=== PATIENT | female | born 1965 | race Hispanic/Latino ===

== ENCOUNTER 2016-12-25 12:03 | Emergency (ER) | payer OTHER ==
[2016-12-25 12:21] VITALS: RESP 18; TEMP 99.2
[2016-12-25] MEDS ORDERED: HYDROmorphone 1 mg/ml ISec SC STA (12:35)
--- NOTE | 2016-12-25 12:39 | ED PDOC ---
Arrival/HPI - General Chief Complaint: Headache Time Seen by Provider: 12/25/16 12:08 Historian: Patient - History of Present Illness Time/Duration: Other (Several days) Symptom Onset: Gradual Symptom Course: Worsening Quality: Aching, Throbbing Severity Level: Severe Activities at Onset: Rest Associated Symptoms (Text): 12/25/16 12:36 Patient complains of a severe left sided migraine headache which is typical for her. She reports she had a left lower posterior root canal done yesterday and the headache has become worse. Her Percocet is not helping. She is requesting Dilaudid and Zofran. No dizziness or lightheadedness. No trauma. No fever. No nausea or vomiting. No photophobia. No weakness. No numbness tingling or paresthesias. She does not appear ill. Past Medical History - Provider Review Nursing Documentation Reviewed: Yes - Cardiac Hx Hypertension: Yes - Pulmonary Hx Respiratory Disorders: No - Neurological Hx Seizures: Yes (10 yrs ago) - HEENT Hx HEENT Disorder: No - Renal Hx Renal Disorder: No - Endocrine/Metabolic Hx Endocrine Disorders: No - Hematological/Oncological Hx Blood Disorders: No - Gastrointestinal Hx Diverticulitis: Yes Hx Gastroesophageal Reflux: Yes - Psychiatric Hx Anxiety: Yes Hx Depression: Yes Hx Substance Use: No - Surgical History Hx Hysterectomy: Yes Family/Social History - Physician Review Nursing Documentation Reviewed: Yes Family/Social History: Unknown Family HX Smoking Status: Never Smoked Hx Alcohol Use: No Hx Substance Use: No Allergies/Home Meds Allergies/Adverse Reactions: Allergies Iodine and Iodide Containing Produc Allergy (Severe, Verified 12/25/16 12:18) SHORTNESS OF BREATH ketorolac [From Toradol] Allergy (Severe, Verified 12/25/16 12:18) VOMITING Penicillins Allergy (Severe, Verified 12/25/16 12:18) SHORTNESS OF BREATH adhesive Allergy (Verified 12/25/16 12:20) RASH metoclopramide [From Reglan] Allergy (Verified 12/25/16 12:18) FATIGUE moxifloxacin [From Avelox] Allergy (Verified 12/25/16 12:21) seziure prochlorperazine [From Compazine] Allergy (Verified 12/25/16 12:18) VOMITING promethazine [From Phenergan] Allergy (Verified 12/25/16 12:19) VOMITING triamcinolone [From Kenalog] Allergy (Verified 12/25/16 12:19) RASH Review of Systems - Physician Review All systems were reviewed & negative as marked: Yes - Review of Systems Constitutional: Normal Eyes: Normal ENT: Other (Left earache) Respiratory: Normal Cardiovascular: Normal Gastrointestinal: Normal. absent: Nausea, Vomiting Neurological: Headache. absent: Dizziness, Focal Weakness, Gait Changes, Speech Changes, Facial Droop, Disequilibrium, Seizure Physical Exam Vital Signs Reviewed: Yes Vital Signs Temp Pulse Resp BP Pulse Ox 12/25/16 13:12 99 H 18 127/79 97 12/25/16 12:04 99.2 F 118 H 18 129/84 98 Temperature: Afebrile Blood Pressure: Normal Pulse: Tachycardic Respiratory Rate: Normal Appearance: Positive for: Well-Appearing, Non-Toxic, Comfortable Pain Distress: None Mental Status: Positive for: Alert and Oriented X 3 - Systems Exam Head: Present: Atraumatic, Normocephalic Pupils: Present: PERRL Extroacular Muscles: Present: EOMI Conjunctiva: Present: Normal Ears: Present: NORMAL TM, Normal Canal. No: Erythema, TM Bulging Mouth: Present: Moist Mucous Membranes Pharnyx: Present: Other (Left mid jaw swelling secondary to root canal yesterday ). No: ERYTHEMA, EXUDATE, TONSILS ENLARGED Neck: Present: Normal Range of Motion. No: Meningeal Signs, MIDLINE TENDERNESS , Paraspinal Tenderness Respiratory/Chest: Present: Clear to Auscultation, Good Air Exchange. No: Respiratory Distress, Accessory Muscle Use Cardiovascular: Present: Regular Rate and Rhythm, Normal S1, S2. No: Murmurs Abdomen: Present: Normal Bowel Sounds. No: Tenderness, Distention, Peritoneal Signs Upper Extremity: Present: Normal Inspection. No: Cyanosis, Edema Lower Extremity: Present: Normal Inspection. No: Edema Neurological: Present: GCS=15, CN II-XII Intact, Speech Normal, Motor Func Grossly Intact, Normal Sensory Function, Normal Cerebellar Funct, Gait Normal Skin: Present: Warm, Dry, Normal Color. No: Rashes Psychiatric: Present: Alert, Oriented x 3, Normal Insight, Normal Concentration Medical Decision Making ED Course and Treatment: 12/25/16 13:51 Patient is requesting additional Zofran and Dilaudid. 12/25/16 14:58 Improved after second dose of Dilaudid and Zofran. She is requesting Percocet and Zofran to go home with. I discussed with her that I would give her a prescription for Zofran, but she needed her chronic narcotic pain medicine from her PMD. She will be discharged home accompanied by her . - Medication Orders Current Medication Orders: Discontinued Medications Hydromorphone HCl (Dilaudid) 1 mg SC STAT STA Stop: 12/25/16 12:36 Last Admin: 12/25/16 12:52 Dose: Hydromorphone HCl (Dilaudid) 1 mg IVP STAT STA Stop: 12/25/16 12:54 Last Admin: 12/25/16 12:54 Dose: 1 mg Hydromorphone HCl (Dilaudid) 1 mg IVP STAT STA Stop: 12/25/16 13:49 Last Admin: 12/25/16 14:14 Dose: 1 mg Sodium Chloride (Sodium Chloride 0.9%) 500 mls @ 500 mls/hr IV ONCE ONE Stop: 12/25/16 14:48 Last Admin: 12/25/16 14:14 Dose: 500 mls/hr Ondansetron HCl (Zofran Tab) 4 mg PO STAT STA Stop: 12/25/16 12:36 Last Admin: 12/25/16 12:52 Dose: Ondansetron HCl (Zofran Inj) Confirm Administered Dose 4 mg .ROUTE .STK-MED ONE Stop: 12/25/16 12:51 Last Admin: 12/25/16 12:55 Dose: 4 mg Ondansetron HCl (Zofran Inj) 4 mg IVP STAT STA Stop: 12/25/16 12:55 Last Admin: 12/25/16 12:55 Dose: Ondansetron HCl (Zofran Inj) 4 mg IVP ONCE ONE Stop: 12/25/16 13:50 Last Admin: 12/25/16 14:15 Dose: 4 mg Disposition/Present on Arrival - Present on Arrival Any Indicators Present on Arrival: No History of DVT/PE: No History of Uncontrolled Diabetes: No Urinary Catheter: No History of Decub. Ulcer: No History Surgical Site Infection Following: None - Disposition Have Diagnosis and Disposition been Completed?: Yes Diagnosis: Headache, Toothache Disposition: HOME/ ROUTINE Disposition Time: 14:59 Patient Plan: Discharge Condition: IMPROVED Discharge Instructions (ExitCare): Acute Headache (ED), Toothache (ED) Additional Instructions: Call your dentist. Follow-up with PMD. Follow up in ER as needed. Prescriptions: Ondansetron [Zofran Odt] 4 mg SL Q6 #20 odt Referrals: PCP,NO [Primary Care Provider] - Follow up with primary Forms: [employer] (Yakut)
[2016-12-25] MEDS ORDERED: HYDROmorphone 1 mg/ml ISec IVP STA ×2 (12:53→13:48)
[2016-12-25 13:12] VITALS: O2SAT 97
[2016-12-25] MEDS ORDERED: Sodium Chloride 0.9% 500 ML IV ONE (13:49)
[2016-12-25 15:09] VITALS: BP 125/71; PULSE 89
== END 2016-12-25 15:00 | disposition home or self-care (01) ==
LOC: ED 12:03
DX: R51 Headache (principal); K08.89 Other specified disorders of teeth and supporting structures; I10 Essential (primary) hypertension
CPT/HCPCS: 96361; 96374; 96375; 96376; 99285; J1170; J2405; J7040

== ENCOUNTER 2016-12-27 21:22 | Emergency (ER) | payer OTHER ==
[2016-12-27 21:34] VITALS: BP 123/80; PULSE 85; RESP 19; TEMP 98.9; O2SAT 98
[2016-12-27] MEDS ORDERED: Oxycodone/Acetaminophen 5/325 mg Tab PO STA (22:00)
--- NOTE | 2016-12-27 22:14 | ED PDOC ---
Arrival/HPI - General Historian: Patient - General Chief Complaint: Dental Pain Time Seen by Provider: 12/27/16 21:49 - History of Present Illness Narrative History of Present Illness (Text): 12/27/16 22:15 51 y/o female, allergic to multiple medications, post menopausal, c/o lt. lower molar pain x 3 days s/p dental root canal done. Aching pain, aggravated by chewing and biting, no fever or chills, no night sweat, no rash, no facial swelling, no other medical or psychological complaints. (Puma Hewitt) Past Medical History - Provider Review Nursing Documentation Reviewed: Yes - Infectious Disease Hx of Infectious Diseases: None - Cardiac Hx Hypertension: Yes - Pulmonary Hx Respiratory Disorders: No - Neurological Hx Seizures: Yes (10 yrs ago) - HEENT Hx HEENT Disorder: No - Renal Hx Renal Disorder: No - Endocrine/Metabolic Hx Endocrine Disorders: No - Hematological/Oncological Hx Blood Disorders: No - Gastrointestinal Hx Diverticulitis: Yes Hx Gastroesophageal Reflux: Yes - Psychiatric Hx Anxiety: Yes Hx Depression: Yes Hx Substance Use: No - Surgical History Hx Hysterectomy: Yes - Anesthesia Hx Anesthesia: Yes Hx Anesthesia Reactions: No Hx Malignant Hyperthermia: No Family/Social History - Physician Review Nursing Documentation Reviewed: Yes Family/Social History: Unknown Family HX Smoking Status: Never Smoked Hx Alcohol Use: No Hx Substance Use: No Allergies/Home Meds Allergies/Adverse Reactions: Allergies Iodine and Iodide Containing Produc Allergy (Severe, Verified 12/27/16 21:34) SHORTNESS OF BREATH ketorolac [From Toradol] Allergy (Severe, Verified 12/27/16 21:34) VOMITING Penicillins Allergy (Severe, Verified 12/27/16 21:34) SHORTNESS OF BREATH adhesive Allergy (Verified 12/27/16 21:34) RASH metoclopramide [From Reglan] Allergy (Verified 12/27/16 21:34) FATIGUE moxifloxacin [From Avelox] Allergy (Verified 12/27/16 21:34) seziure prochlorperazine [From Compazine] Allergy (Verified 12/27/16 21:34) VOMITING promethazine [From Phenergan] Allergy (Verified 12/27/16 21:34) VOMITING triamcinolone [From Kenalog] Allergy (Verified 12/27/16 21:34) RASH Home Medications: Home Meds Medication Instructions Recorded Confirmed Conjugated Estrogens [Premarin] 0.625 mg PO DAILY 12/27/16 12/27/16 Diltiazem HCl [Diltiazem ER] 120 mg PO DAILY 12/27/16 12/27/16 Esomeprazole Magnesium [Nexium] 40 mg PO DAILY 12/27/16 12/27/16 FLUoxetine [Fluoxetine HCl] 20 mg PO DAILY 12/27/16 12/27/16 LORazepam [Ativan] 1 mg PO TID 12/27/16 12/27/16 Review of Systems - Review of Systems Constitutional: absent: Fatigue, Fevers Eyes: absent: Vision Changes ENT: Other (dental pain). absent: Hearing Changes Respiratory: absent: SOB, Cough Cardiovascular: absent: Chest Pain Gastrointestinal: absent: Abdominal Pain, Diarrhea, Nausea, Vomiting Musculoskeletal: absent: Arthralgias, Back Pain, Myalgias Skin: absent: Rash, Pruritis, Skin Lesions Neurological: absent: Headache, Dizziness Physical Exam Vital Signs Reviewed: Yes Temperature: Afebrile Blood Pressure: Normal Pulse: Regular Respiratory Rate: Normal Appearance: Positive for: Well-Appearing, Non-Toxic Pain Distress: Moderate Mental Status: Positive for: Alert and Oriented X 3 - Systems Exam Head: Present: Atraumatic, Normocephalic Pupils: Present: PERRL Extroacular Muscles: Present: EOMI Conjunctiva: Present: Normal Mouth: Present: Moist Mucous Membranes Pharnyx: Present: Other (visible dental caries noted on the lt. lower molar region, no gingivitis or gingival abscess. ). No: ERYTHEMA, EXUDATE, TONSILS ENLARGED Neck: Present: Normal Range of Motion Respiratory/Chest: Present: Clear to Auscultation, Good Air Exchange. No: Respiratory Distress, Accessory Muscle Use, Wheezes, Retracting, Rhonchi Cardiovascular: Present: Regular Rate and Rhythm, Normal S1, S2. No: Murmurs Abdomen: Present: Normal Bowel Sounds. No: Tenderness, Distention, Peritoneal Signs Back: Present: Normal Inspection Upper Extremity: Present: Normal Inspection. No: Cyanosis, Edema Lower Extremity: Present: Normal Inspection. No: Edema Neurological: Present: GCS=15, Speech Normal, Motor Func Grossly Intact, Gait Normal, Memory Normal Skin: Present: Warm, Dry, Normal Color. No: Rashes Psychiatric: Present: Alert, Oriented x 3, Normal Insight, Normal Concentration Medical Decision Making ED Course and Treatment: 12/27/16 22:17 -percocet (pt. is not allergic to percocet)/clindamycin 12/27/16 22:33 -pain decreased, feels better, will discharge home. -Discharge home with clindamycin, viscous lidocaine, stay hydrated, soft food diet, follow up with your own pmd and dentist within 2 days, return to the ER for any new or worsening signs or symptoms. (Puma Hewitt) - Medication Orders Current Medication Orders: Discontinued Medications Clindamycin HCl (Cleocin) 300 mg PO STAT STA PRN Reason: Protocol Stop: 12/27/16 22:01 Last Admin: 12/27/16 22:12 Dose: 300 mg Oxycodone/Acetaminophen (Percocet 5/325 Mg Tab) 1 tab PO STAT STA Stop: 12/27/16 22:01 Last Admin: 12/27/16 22:11 Dose: 1 tab Re-Assess: [facility] Pain Assessment Document 12/27/16 23:11 JOL (Rec: 12/28/16 01:[address] [id number]) Pain Reassessment Is this a pain reassessment? Yes Sleep Is patient sleeping during reassessment? 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 Disposition/Present on Arrival - Present on Arrival Any Indicators Present on Arrival: No History of DVT/PE: No History of Uncontrolled Diabetes: No Urinary Catheter: No History of Decub. Ulcer: No History Surgical Site Infection Following: None - Disposition Have Diagnosis and Disposition been Completed?: Yes Disposition Time: 22:18 Patient Plan: Discharge - Disposition Diagnosis: Dental caries, Pain, dental Disposition: HOME/ ROUTINE Condition: IMPROVED Additional Instructions: -Discharge home with clindamycin, viscous lidocaine, stay hydrated, soft food diet, follow up with your own pmd and dentist within 2 days, return to the ER for any new or worsening signs or symptoms. Prescriptions: Clindamycin [Cleocin] 300 mg PO TID #30 cap Lidocaine 2% Viscous 15 ml MM TID PRN #200 ml PRN Reason: Other Referrals: Wiliam Cuadra, IGOR [Non-Staff] - Follow up with primary Forms: [employer] (Haitian), WORK NOTE
== END 2016-12-27 22:49 | disposition home or self-care (01) ==
LOC: ED 21:22
DX: K02.9 Dental caries, unspecified (principal)

== ENCOUNTER 2017-12-16 22:23 | Emergency (ER) | payer OTHER ==
[2017-12-16 22:53] VITALS: RESP 18; TEMP 97.6; BMI 22.3
[2017-12-17 00:04] LABS: BASO # 0.03 K/mm3 (0.0-2.0); BASO % 0.3 % (0.0-3.0); EOS % 0.2 % (1.5-5.0); GRAN # 8.3 (1.4-6.5); GRAN % 78.8 % (50.0-68.0); LYMPH # 1.8 (1.2-3.4); LYMPH % 17.4 % (22.0-35.0); MEAN CELL VOLUME 86.5 fl (80.0-105.0); MEAN CORPUSCULAR HEMOGLOBIN 29.6 pg (25.0-35.0); MEAN CORPUSCULAR HGB CONC 34.2 g/dl (31.0-37.0); MEAN PLATELET VOLUME 10.4 fl (7.0-11.0); MONO # 0.4 (0.1-0.6); MONO % 3.3 % (1.0-6.0); RBC 4.06 10^6/uL (3.5-6.1); RED CELL DISTRIBUTION WIDTH 12.5 % (11.5-14.5); WHITE BLOOD COUNT 10.5 10^3/ul (4.5-11.0)
[2017-12-17] MEDS ORDERED: Alum-Mag Hydrox-Simethicone Susp (30 mL) PO STA ×2 (00:52→03:12)
--- NOTE | 2017-12-17 00:54 | ED PDOC ---
Arrival/HPI - General Chief Complaint: Abdominal Pain Time Seen by Provider: 12/16/17 23:44 Historian: Patient - History of Present Illness Narrative History of Present Illness (Text): 12/17/17 00:46 52 y/o F w/ h/o includes UTI, diverticulitis, interstitial cystitis, and endometriosis, presents to the emergency department complaining of worsening diffuse abdominal pain that began yesterday morning. Patient describes the pain as a sharp and cramping sensation. Patient reports taking ibuprofen with no alleviation of symptoms. Patient reports chills nausea, and constipation for the past week, and also reports urinary frequency, but denies any fever, chest pain, shortness of breath, vomiting, diarrhea, dysuria, hematuria, hematochezia , back pain, neck pain, headache, dizziness, or any other complaints. Time/Duration: 24 hours Symptom Onset: Gradual Symptom Course: Worsening Quality: Cramping (sharp) Severity Level: Moderate Activities at Onset: Light Context: Home Past Medical History - Provider Review Nursing Documentation Reviewed: Yes - Travel History Have you recently traveled outside [place] w/in the past 3 mons?: No - Infectious Disease Hx of Infectious Diseases: None - Cardiac Hx Hypertension: Yes - Pulmonary Hx Respiratory Disorders: No - Neurological Hx Seizures: Yes (10 yrs ago) - HEENT Hx HEENT Disorder: No - Renal Other/Comment: interstitial cystitis - Endocrine/Metabolic Hx Endocrine Disorders: No - Hematological/Oncological Hx Blood Disorders: No - Gastrointestinal Hx Diverticulitis: Yes Hx Gastroesophageal Reflux: Yes Other/Comment: IBS - Genitourinary/Gynecological Other/Comment: Hysterectectomy - Psychiatric Hx Anxiety: Yes Hx Depression: Yes Hx Substance Use: No - Surgical History Hx Appendectomy: Yes Hx Hysterectomy: Yes - Anesthesia Hx Anesthesia: Yes Hx Anesthesia Reactions: No Hx Malignant Hyperthermia: No Family/Social History - Physician Review Nursing Documentation Reviewed: Yes Family/Social History: No Known Family HX Smoking Status: Never Smoked Hx Alcohol Use: No Hx Substance Use: No Allergies/Home Meds Allergies/Adverse Reactions: Allergies Iodine and Iodide Containing Produc Allergy (Severe, Verified 12/16/17 23:00) SHORTNESS OF BREATH ketorolac [From Toradol] Allergy (Severe, Verified 12/16/17 23:00) VOMITING Penicillins Allergy (Severe, Verified 12/16/17 23:00) SHORTNESS OF BREATH adhesive Allergy (Verified 12/16/17 23:00) RASH metoclopramide [From Reglan] Allergy (Verified 12/16/17 23:00) FATIGUE moxifloxacin [From Avelox] Allergy (Verified 12/16/17 23:00) seziure prochlorperazine [From Compazine] Allergy (Verified 12/16/17 23:00) VOMITING promethazine [From Phenergan] Allergy (Verified 12/16/17 23:00) VOMITING triamcinolone [From Kenalog] Allergy (Verified 12/16/17 23:00) RASH Home Medications: Home Meds Medication Instructions Recorded Confirmed Conjugated Estrogens [Premarin] 0.625 mg PO DAILY 12/27/16 12/16/17 Diltiazem HCl [Diltiazem ER] 180 mg PO DAILY 12/27/16 12/16/17 Esomeprazole Magnesium [Nexium] 40 mg PO DAILY 12/27/16 12/16/17 LORazepam [Ativan] 1 mg PO TID 12/27/16 12/16/17 Escitalopram [Lexapro] 1 tab PO DAILY 03/12/17 12/16/17 Review of Systems - Physician Review All systems were reviewed & negative as marked: Yes - Review of Systems Constitutional: Other (Ch). absent: Fevers Respiratory: absent: SOB Cardiovascular: absent: Chest Pain Gastrointestinal: Abdominal Pain, Constipation, Nausea. absent: Diarrhea, Vomiting, Hematochezia Genitourinary Female: Frequency. absent: Dysuria, Hematuria Musculoskeletal: absent: Back Pain, Neck Pain Neurological: absent: Headache, Dizziness Physical Exam Vital Signs Reviewed: Yes Vital Signs Temp Pulse Resp BP Pulse Ox 12/17/17 03:40 74 18 128/82 98 12/17/17 02:23 82 18 127/82 100 12/17/17 00:23 80 18 135/80 99 12/16/17 22:58 97.6 F 84 18 146/86 100 12/16/17 22:51 97.6 F 84 18 146/86 100 Temperature: Afebrile Blood Pressure: Normal Pulse: Regular Respiratory Rate: Normal Appearance: Positive for: Well-Appearing, Non-Toxic, Comfortable Pain Distress: None Mental Status: Positive for: Alert and Oriented X 3 - Systems Exam Head: Present: Atraumatic, Normocephalic Pupils: Present: PERRL Extroacular Muscles: Present: EOMI Conjunctiva: Present: Normal Mouth: Present: Moist Mucous Membranes Neck: Present: Normal Range of Motion Respiratory/Chest: Present: Clear to Auscultation, Good Air Exchange. No: Respiratory Distress, Accessory Muscle Use Cardiovascular: Present: Regular Rate and Rhythm, Normal S1, S2. No: Murmurs Abdomen: Present: Tenderness (Lower abdominal tenderness), Normal Bowel Sounds, Guarding. No: Distention, Peritoneal Signs, Rebound Back: Present: CVA Tenderness (right sided ) Upper Extremity: Present: Normal Inspection. No: Cyanosis, Edema Lower Extremity: Present: Normal Inspection. No: Edema Neurological: Present: GCS=15, CN II-XII Intact, Speech Normal Skin: Present: Warm, Dry, Normal Color. No: Rashes Psychiatric: Present: Alert, Oriented x 3, Normal Insight, Normal Concentration Medical Decision Making ED Course and Treatment: 12/17/17 00:46 Impression: 52 year old female presentsw/ abdominal pain Differential Diagnoses Include But are Not Limited To: Colitis PUD Gatritis/Gastroenteritis Pancreatitis Plan: -- CT Abdomen & Pelvis -- Labs -- EKG -- UA -- Reassess and disposition Prior Visits: Notes and results from pervious visits were reviewed. Progress Notes: CT Abdomen and Pelvis Without Intravenous Contrast Dictated and Authenticated by: Darron Canas MD 12/17/2017 3:04 AM IMPRESSION: No definite acute abdominal pathologic finding. 12/17/17 03:25 EKG Ordered, read and interpreted Interpretation:NSR at [address] elevations. 12/17/17 03:36 Labs reviewed with no leukocytosis noted. CT unremarkable for acute intraabdominal pathology. 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 Scripts provided. On re-evaluation, patient feels better and is in no acute distress. I have discussed the results and plan with the patient, who expresses understanding. Patient in agreement with plan to be discharged home. Patient is stable for discharge. Patient was instructed to follow up with physician or return if symptoms worsen or new concerning symptoms arise. - Lab Interpretations Lab Results: 12/16/17 23:50 Lab Results 12/16/17 23:50: WBC 10.5, RBC 4.06, Hgb 12.0, Hct 35.1 L, MCV 86.5, MCH 29.6, MCHC 34.2, RDW 12.5, Plt Count 386, MPV 10.4, Gran % 78.8 H, Lymph % (Auto) 17.4 L, [place] % (Auto) 3.3, Eos % (Auto) 0.2 L, Baso % (Auto) 0.3, Gran # 8.30 H , Lymph # (Auto) 1.8, [place] # (Auto) 0.4, Eos # (Auto) 0.0, Baso # (Auto) 0.03 I have reviewed the lab results: Yes - RAD Interpretation Radiology Orders: 12/17/17 00:50 ABDOMEN & PELVIS [ABD & PELVIS W/O PO OR IV CONT] [CT] Stat - EKG Interpretation Interpreted by ED Physician: Yes Type: 12 lead EKG - Medication Orders Current Medication Orders: Discontinued Medications Al Hydrox/Mg Hydrox/Simethicone (Maalox Plus 30 Ml) 30 ml PO STAT STA Stop: 12/17/17 00:53 Last Admin: 12/17/17 01:14 Dose: 30 ml Al Hydrox/Mg Hydrox/Simethicone (Maalox Plus 30 Ml) 30 ml PO STAT STA Stop: 12/17/17 03:13 Last Admin: 12/17/17 03:24 Dose: 30 ml Diphenhydramine HCl (Benadryl) 25 mg PO STAT STA Stop: 12/17/17 01:49 Last Admin: 12/17/17 01:59 Dose: 25 mg Morphine Sulfate (Morphine) 2 mg IVP STAT STA Stop: 12/17/17 01:18 Last Admin: 12/17/17 01:27 Dose: 2 mg MAR Pain Assessment Document 12/17/17 01:27 JOL (Rec: 12/17/17 01:27 [id number] Pain Reassessment Is this a pain reassessment? No Sleep Is patient sleeping during reassessment? No Presence of Pain Presence of Pain Yes Pain Scale Used Pain Scale Used Numeric Location Upper or Lower Upper Pain Location Body Site Abdomen Description Pain Behavior Withdrawal from Touch Restlessness Facial Grimacing IVP Administration Document 12/17/17 01:27 JOL (Rec: 12/17/17 01:27 [id number]) Charges for Administration # of IVP Administrations 1 Morphine Sulfate (Morphine) 2 mg IVP STAT STA Stop: 12/17/17 03:13 Last Admin: 12/17/17 03:25 Dose: 2 mg MAR Pain Assessment Document 12/17/17 03:25 JOL (Rec: 12/17/17 03:28 [id number]) Pain Reassessment Is this a pain reassessment? No Sleep Is patient sleeping during reassessment? No Presence of Pain Presence of Pain Yes Pain Scale Used Pain Scale Used Numeric Location Upper or Lower Upper Pain Location Body Site Abdomen Description Intensity of Pain at present 8 IVP Administration Document 12/17/17 03:25 JOL (Rec: 12/17/17 03:28 [facility] [id number]) Charges for Administration # of IVP Administrations 1 Ondansetron HCl (Zofran Inj) 2 mg IVP STAT STA Stop: 12/17/17 01:18 Last Admin: 12/17/17 01:26 Dose: 4 mg IVP Administration Document 12/17/17 01:26 JOL (Rec: 12/17/17 01:27 [id number]) Charges for Administration # of IVP Administrations 1 - Scribe Statement The provider has reviewed the documentation as recorded by the Tony Gant Provider Scribe Attestation: All medical record entries made by the [employer] were at my direction and personally dictated by me. I have reviewed the chart and agree that the record accurately reflects my personal performance of the history, physical exam, medical decision making, and the department course for this patient. I have also personally directed, reviewed, and agree with the discharge instructions and disposition. Disposition/Present on Arrival - Present on Arrival Any Indicators Present on Arrival: No History of DVT/PE: No History of Uncontrolled Diabetes: No Urinary Catheter: No History of Decub. Ulcer: No History Surgical Site Infection Following: None - Disposition Have Diagnosis and Disposition been Completed?: Yes Diagnosis: Abdominal pain Disposition: HOME/ ROUTINE Disposition Time: 03:15 Patient Plan: Discharge Condition: IMPROVED Discharge Instructions (ExitCare): Chronic Pain (DC), Flank Pain, Nausea and Vomiting, Adult (DC) Referrals: FAMILY PROVIDER,NO [Primary Care Provider] - Follow up with primary Forms: [employer] ([place])
[2017-12-17] MEDS ORDERED: Morphine 2 mg/ml ISec IVP STA ×2 (01:17→03:12)
[2017-12-17 03:45] VITALS: BP 128/82; PULSE 74; O2SAT 98
--- NOTE | 2017-12-17 09:31 | CARD ---
APPROVED REPORT Date of service: 12/17/2017 EKG Measurement Heart [id number] <Conclusion> Normal sinus rhythm Possible Left atrial enlargement
--- NOTE | 2017-12-17 10:32 | CT ---
Date of service: 12/17/2017 PROCEDURE: CT Abdomen and Pelvis without intravenous contrast HISTORY: abdominal pain COMPARISON: None. TECHNIQUE: Without contrast.. Contrast dose: Radiation dose: Total exam DLP = 322 mGy-cm. This CT exam was performed using one or more of the following dose reduction techniques: Automated exposure control, adjustment of the mA and/or kV according to patient size, and/or use of iterative reconstruction technique. FINDINGS: LOWER THORAX: Unremarkable. LIVER: Unremarkable. No gross lesion or ductal dilatation. GALLBLADDER AND BILE DUCTS: Unremarkable. PANCREAS: Unremarkable. No gross lesion or ductal dilatation. SPLEEN: Unremarkable. ADRENALS: Unremarkable. No mass. KIDNEYS AND URETERS: Unremarkable. No hydronephrosis. No solid mass. VASCULATURE: Unremarkable. No aortic aneurysm. BOWEL: Unremarkable. No obstruction. No gross mural thickening. APPENDIX: Unremarkable. Normal appendix. PERITONEUM: Unremarkable. No free fluid. No free air. LYMPH NODES: Unremarkable. No enlarged lymph nodes. BLADDER: Unremarkable. REPRODUCTIVE: Unremarkable. BONES: No acute fracture. OTHER FINDINGS: The report concurs with the preliminary [facility] report IMPRESSION: No acute findings
== END 2017-12-17 03:40 | disposition home or self-care (01) ==
LOC: ED 22:23
DX: R10.9 Unspecified abdominal pain (principal); I10 Essential (primary) hypertension
CPT/HCPCS: 74176; 85025; 93005; 96374; 96375; 96376; 99284; J2270; J2405

== ENCOUNTER 2018-01-12 14:10 | Emergency (ER) | payer OTHER ==
[2018-01-12 14:10] VITALS: BMI 22.3
[2018-01-12 14:32] VITALS: RESP 18
[2018-01-12] MEDS ORDERED: Sodium Chloride 0.9% 1,000 ML IV STA (15:24)
--- NOTE | 2018-01-12 15:31 | ED PDOC ---
Arrival/HPI <Cristobal Wang - Last Filed: 01/12/18 17:56> - General Historian: Patient - History of Present Illness Time/Duration: < week (2 days) Symptom Onset: Gradual Symptom Course: Worsening Quality: Stabbing Severity Level: 10 Activities at Onset: Rest Context: Sitting, Home <Andrew Marinelli - Last Filed: 01/12/18 20:02> - General Chief Complaint: Abdominal Pain Time Seen by Provider: 01/12/18 14:14 - History of Present Illness Narrative History of Present Illness (Text): 01/12/18 15:13 CC: Abdominal pain HPI: 52 year old female with a PMHx of IBS, interstitial cystitis, endometriosis , diverticulitis, seizures who presents with abdominal pain and nausea. Patient reports that since 2 days ago, she has experienced diffuse abdominal pain that is currently worse in the left side and radiates inferiorly to the groin and superiorly to the epigastrium. Rates sharp stabbing pain as a 10/10 and reports associated pulsations which she feels all over her body. Patient denies hematuria and hematochezia. Pain worse with movement although difficult to find a place of comfort. Patient reports recent nerve block to "sympathetic chain" that was performed over the weekend by her pain management doctor in [place]. Patient has tried Ibuprofen, ice packs, heating pads, and oxycodone without relief. Patient reports some diarrhea as well, although she reports 1 bowel movement daily that is watery, followed by a regularly formed bowel movement. Patient has not seen a Product Consultant as recommended at previous visit due to changes in housing. PMHx: seizure, interstitial cystitis, diverticulitis, endometriosis PSHx: appendectomy, hysterectomy ALL: as per [facility] and GI Doctors are located in [place]. (Andrew Marinelli) Past Medical History - Provider Review Nursing Documentation Reviewed: Yes - Travel History Have you recently traveled outside [place] w/in the past 3 mons?: No - Infectious Disease Hx of Infectious Diseases: None - Reproductive Menopause: Yes - Cardiac Hx Cardiac Disorders: No Hx Hypertension: Yes - Pulmonary Hx Respiratory Disorders: No - Neurological Hx Seizures: Yes (10 yrs ago) - HEENT Hx HEENT Disorder: No - Renal Other/Comment: interstitial cystitis - Endocrine/Metabolic Hx Endocrine Disorders: No - Hematological/Oncological Hx Blood Disorders: No - Gastrointestinal Hx Diverticulitis: Yes Hx Gastroesophageal Reflux: Yes Other/Comment: IBS - Genitourinary/Gynecological Other/Comment: Hysterectectomy - Psychiatric Hx Anxiety: Yes Hx Depression: Yes Hx Substance Use: No - Surgical History Hx Appendectomy: Yes Hx Hysterectomy: Yes - Anesthesia Hx Anesthesia: Yes Hx Anesthesia Reactions: No Hx Malignant Hyperthermia: No <Andrew Marinelli - Last Filed: 01/12/18 20:02> Family/Social History - Physician Review Nursing Documentation Reviewed: Yes Family/Social History: CVA/TIA, Diabetes, Intracranial Hemorrhage Smoking Status: Never Smoked Hx Alcohol Use: No Hx Substance Use: No <Andrew Marinelli - Last Filed: 01/12/18 20:02> Allergies/Home Meds <Cristobal Wang - Last Filed: 01/12/18 17:56> <Andrew Marinelli - Last Filed: 01/12/18 20:02> Allergies/Adverse Reactions: Allergies Iodine and Iodide Containing Produc Allergy (Severe, Verified 01/12/18 14:32) SHORTNESS OF BREATH ketorolac [From Toradol] Allergy (Severe, Verified 01/12/18 14:32) VOMITING Penicillins Allergy (Severe, Verified 01/12/18 14:32) SHORTNESS OF BREATH adhesive Allergy (Verified 01/12/18 14:32) RASH metoclopramide [From Reglan] Allergy (Verified 01/12/18 14:32) FATIGUE moxifloxacin [From Avelox] Allergy (Verified 01/12/18 14:32) seziure prochlorperazine [From Compazine] Allergy (Verified 01/12/18 14:32) VOMITING promethazine [From Phenergan] Allergy (Verified 01/12/18 14:32) VOMITING triamcinolone [From Kenalog] Allergy (Verified 01/12/18 14:32) RASH Home Medications: Home Meds Medication Instructions Recorded Confirmed Conjugated Estrogens [Premarin] 0.625 mg PO DAILY 12/27/16 01/12/18 Diltiazem HCl [Diltiazem ER] 180 mg PO DAILY 12/27/16 01/12/18 Esomeprazole Magnesium [Nexium] 40 mg PO DAILY 12/27/16 01/12/18 LORazepam [Ativan] 1 mg PO TID 12/27/16 01/12/18 Escitalopram [Lexapro] 1 tab PO DAILY 03/12/17 01/12/18 Review of Systems - Physician Review All systems were reviewed & negative as marked: Yes - Review of Systems Constitutional: Weight Change (unintentionally lost a few lbs in a few weeks) Eyes: Normal ENT: Normal Respiratory: Normal Cardiovascular: Normal Gastrointestinal: Abdominal Pain, Diarrhea, Nausea. absent: Hematochezia, Hematemesis Genitourinary Female: Normal Musculoskeletal: Back Pain Skin: Normal Neurological: Normal Endocrine: Normal Hemo/Lymphatic: Normal Psychiatric: Anxiety <Isis,Andrew - Last Filed: 01/12/18 20:02> Physical Exam <Cristobal Wang - Last Filed: 01/12/18 17:56> Vital Signs Reviewed: Yes Temperature: Afebrile Blood Pressure: Normal Pulse: Tachycardic Respiratory Rate: Normal Appearance: Positive for: Uncomfortable Pain Distress: Moderate Mental Status: Positive for: Alert and Oriented X 3 - Systems Exam Head: Present: Atraumatic, Normocephalic Pupils: Present: PERRL Extroacular Muscles: Present: EOMI Conjunctiva: Present: Normal Neck: Present: Normal Range of Motion Respiratory/Chest: Present: Clear to Auscultation, Good Air Exchange. No: Respiratory Distress, Accessory Muscle Use, Wheezes, Rhonchi Cardiovascular: Present: Regular Rate and Rhythm, Normal S1, S2, Peripheal Pulses Present. No: Murmurs, Irregular Rhythm Abdomen: Present: Tenderness, Normal Bowel Sounds, Guarding (LLQ and RUQ). No: Distention, Peritoneal Signs, Rebound, Scars (no scars visualized from appy or hysterectomy) Back: Present: CVA Tenderness (L>R) Upper Extremity: Present: Normal Inspection Lower Extremity: Present: Normal Inspection. No: CALF TENDERNESS Neurological: Present: GCS=15, CN II-XII Intact, Speech Normal Skin: Present: Warm, Dry, Normal Color. No: Rashes Psychiatric: Present: Alert, Oriented x 3, Normal Insight, Normal Concentration , Anxious <Paulaabiola,Andrew - Last Filed: 01/12/18 20:02> Vital Signs Temp Pulse Resp BP Pulse Ox 01/12/18 16:10 98 F 87 18 110/78 100 01/12/18 14:28 98.5 F 98 H 18 106/71 99 Medical Decision Making - Lab Interpretations I have reviewed the lab results: Yes - RAD Interpretation Manager Cardiac: Radiologist - EKG Interpretation Interpreted by ED Physician: Yes Type: 12 lead EKG <Cristobal Wang - Last Filed: 01/12/18 17:56> <BrandonloriAndrew culver - Last Filed: 01/12/18 20:02> ED Course and Treatment: 01/12/18 16:03 Seen and examined with the resident. Our history and physical exam reveals a young woman complaining of chronic abdominal pain. She was seen in the emergency department approximately one month ago and had an unremarkable workup including CT scan of the abdomen and pelvis. She reports that the pain is become worse over the last week and especially over the last 2 days accompanied by nausea and diarrhea. No vomiting. Her abdomen is soft with generalized tenderness. No guarding and no rebound. No CVA tenderness. No genitourinary symptoms. No fever. She does not appear ill. 01/12/18 17:07 EKG shows normal sinus rhythm rate approximately [address] or T-wave changes. 01/12/[address] without oral or IV Contrast: Dictator : Radha Merida MD FINDINGS:There is limited evaluation of the solid organs without the administration of IV contrast. LOWER THORAX: No visible consolidation, pleural effusion, or pneumothorax. LIVER: Unremarkable. GALLBLADDER AND BILE DUCTS: Unremarkable. PANCREAS: Unremarkable. SPLEEN: 8 mm probable splenule. Otherwise unremarkable. ADRENALS: Unremarkable. KIDNEYS AND URETERS: No hydronephrosis or obstructing renal calculus. BLADDER: Under distention of the urinary bladder appears otherwise unremarkable. REPRODUCTIVE: Uterus is absent, presumably due to hysterectomy. APPENDIX: The appendix is not identified. No secondary signs of acute appendicitis appreciated. BOWEL: The stomach is nondistended. Lack of oral contrast limits evaluation for bowel pathology. The bowel loops appear within normal limits of caliber without evidence of intestinal obstruction. PERITONEUM: No significant free fluid. No definite free air. LYMPH NODES: Nonspecific sub cm bilateral inguinal lymph nodes. No bulky lymphadenopathy identified. VASCULATURE: No aortic aneurysm. BONES: No acute osseous abnormality is detected. OTHER FINDINGS: None. IMPRESSION: No acute pathology identified. Findings as above. 01/12/18 17:26 Discussed in detail with the patient. Her workup is unremarkable. She reports that she has chronic abdominal pain and she sees a pain management physician. She reports she has not run out of her chronic narcotic pain medications. Suggested to her that she needs to follow-up with a data administrator in addition to her pain management physician. Follow-up in the ER as needed. she is already on Nexium. (Cristobal Wang) 01/12/18 15:30 52 year old female with a PMHx of diverticulitis, interstitial cystitis, irritable bowel syndrome and endometriosis who presents with abdominal pain in multiple quadrants and nausea. Plan: CBC CMP EKG, Trop CT abd/pel without contrast Lipase Mg UA NS bolus 1 L Zofran 4 mg Protonix 40 IVP 01/12/18 16:16 Currently reports moderate pain relief. Awaiting CT scan. (Andrew Marinelli) - Lab Interpretations Lab Results: 01/12/18 15:05 01/12/18 15:05 Lab Results 01/12/18 15:05: Sodium 138, Potassium 4.0, Chloride 100, Carbon Dioxide 27, Anion Gap 15, BUN 14, Creatinine 0.7, Est GFR ( Amer) > 60, Est GFR (Non- Af Amer) > 60, Random Glucose 125 H, Calcium 9.6, Magnesium 2.3 H, Total Bilirubin 0.4, AST 22, ALT 11, Alkaline Phosphatase 69, Troponin I < 0.01, Total Protein 8.4 H, Albumin 5.0 H, Globulin 3.4, Albumin/Globulin Ratio 1.5, Lipase 49 01/12/18 15:05: Urine Color Yellow, Urine Appearance Clear, Urine pH 6.0, Ur Specific [place] 1.010, Urine Protein Negative, Urine Glucose (UA) Negative, Urine Ketones Negative, Urine Blood Negative, Urine Nitrate Negative, Urine Bilirubin Negative, Urine Urobilinogen 0.2, Ur Leukocyte Esterase Negative 01/12/18 15:05: WBC 8.6, RBC 4.23, Hgb 12.4, Hct 37.5, MCV 88.7, MCH 29.3, MCHC 33.1, RDW 12.9, Plt Count 305, MPV 10.9, Gran % 83.6 H, Lymph % (Auto) 12.4 L, Cook % (Auto) 3.0, Eos % (Auto) 0.7 L, Baso % (Auto) 0.3, Gran # 7.19 H, Lymph # (Auto) 1.1 L, Cook # (Auto) 0.3, Eos # (Auto) 0.1, Baso # (Auto) 0.03 - RAD Interpretation Radiology Orders: 01/12/18 15:24 ABD & PELVIS W/O PO OR IV CONT [CT] Stat - Medication Orders Current Medication Orders: Discontinued Medications Sodium Chloride (Sodium Chloride 0.9%) 1,000 mls @ 999 mls/hr IV .Q1H1M STA Stop: 01/12/18 16:24 Last Admin: 01/12/18 15:34 Dose: 999 mls/hr eMAR Start Stop Document 01/12/18 15:34 [place] (Rec: 01/12/18 15:36 [place] [email or web address] Intravenous Solution Start Date 01/12/18 Start Time 15:36 End Date 01/12/18 End time 16:37 Total Infusion Time 61 Ondansetron HCl (Zofran Inj) 4 mg IVP STAT STA Stop: 01/12/18 15:25 Last Admin: 01/12/18 15:38 Dose: 4 mg IVP Administration Document 01/12/18 15:38 [place] (Rec: 01/12/18 15:39 [id number] Charges for Administration # of IVP Administrations 1 Pantoprazole Sodium (Protonix Inj) 40 mg IVP STAT STA Stop: 01/12/18 15:36 Last Admin: 01/12/18 15:42 Dose: 40 mg IVP Administration Document 01/12/18 15:42 [place] (Rec: 01/12/18 15:45 [id number] Charges for Administration # of IVP Administrations 1 - Scribe Statement The provider has reviewed the documentation as recorded by the Scribe <Cristobal Wang - Last Filed: 01/12/18 17:56> <Andrew Marinelli - Last Filed: 01/12/18 20:02> - Scribe Statement Jabier Bear Provider Scribe Attestation: All medical record entries made by the Scribe were at my direction and personally dictated by me. I have reviewed the chart and agree that the record accurately reflects my personal performance of the history, physical exam, medical decision making, and the department course for this patient. I have also personally directed, reviewed, and agree with the discharge instructions and disposition. (Cristobal Wang) Disposition/Present on Arrival - Present on Arrival Any Indicators Present on Arrival: No History of DVT/PE: No History of Uncontrolled Diabetes: No Urinary Catheter: No History of Decub. Ulcer: No - Disposition Have Diagnosis and Disposition been Completed?: Yes Disposition Time: 17:27 Patient Plan: Discharge <Cristobal Wang - Last Filed: 01/12/18 17:56> - Present on Arrival Any Indicators Present on Arrival: No History of DVT/PE: No History of Uncontrolled Diabetes: No Urinary Catheter: No History of Decub. Ulcer: No History Surgical Site Infection Following: None - Disposition Have Diagnosis and Disposition been Completed?: Yes Patient Plan: Discharge <Andrew Marinelli - Last Filed: 01/12/18 20:02> - Disposition Diagnosis: Chronic abdominal pain Disposition: HOME/ ROUTINE Patient Problems: Current Active Problems Problem Status Onset Chronic abdominal pain Acute Condition: IMPROVED Discharge Instructions (ExitCare): Chronic Pain (DC), Acute Abdomen (Belly Pain ) Print Language: MAORI Additional Instructions: Please follow-up with a data administrator in addition to your pain management physician. Please continue taking your medications as prescribed. Should symptoms reoccur or worsen, please follow-up in your nearest ED. Referrals: PCP,NO [Primary Care Provider] - Follow up with primary Forms: [id number] (Bulgarian)
[2018-01-12 15:51] LABS: BASO # 0.03 K/mm3 (0.0-2.0); BASO % 0.3 % (0.0-3.0); EOS # 0.1 (0.0-0.7); EOS % 0.7 % (1.5-5.0); GRAN # 7.19 (1.4-6.5); GRAN % 83.6 % (50.0-68.0); HEMOGLOBIN 12.4 g/dL (12.0-16.0); LYMPH # 1.1 (1.2-3.4); LYMPH % 12.4 % (22.0-35.0); MEAN CELL VOLUME 88.7 fl (80.0-105.0); MEAN CORPUSCULAR HEMOGLOBIN 29.3 pg (25.0-35.0); MEAN CORPUSCULAR HGB CONC 33.1 g/dl (31.0-37.0); MEAN PLATELET VOLUME 10.9 fl (7.0-11.0); MONO # 0.3 (0.1-0.6); RBC 4.23 10^6/uL (3.5-6.1); RED CELL DISTRIBUTION WIDTH 12.9 % (11.5-14.5); WHITE BLOOD COUNT 8.6 10^3/ul (4.5-11.0)
[2018-01-12 15:52] LABS: URINE BILIRUBIN NEGATIVE (NEGATIVE); URINE BLOOD NEGATIVE (NEGATIVE); URINE GLUCOSE (UA) NEGATIVE (NEGATIVE); URINE LEUKOCYTE ESTERASE NEGATIVE Leu/uL (NEGATIVE); URINE PROTEIN NEGATIVE mg/dL (<30 mg/dL); URINE UROBILINOGEN 0.2 E.U./dL (<1 E.U./dL)
[2018-01-12 15:55] LABS: URINE APPEARANCE CLEAR (CLEAR); URINE COLOR YELLOW (YELLOW)
[2018-01-12 16:06] LABS: ALB/GLOB RATIO 1.5 (1.1-1.8); ALT/SGPT 11 U/L (7-56); AST/SGOT 22 U/L (14-36); BLOOD UREA NITROGEN 14 mg/dL (7-21); CALCIUM 9.6 mg/dL (8.4-10.5); GFR NON-AFRICAN AMERICAN > 60; LIPASE 49 U/L (23-300)
[2018-01-12 16:18] LABS: TROPONIN I < 0.01 ng/mL
--- NOTE | 2018-01-12 17:14 | CT ---
PROCEDURE: CT Abdomen and Pelvis without Oral or IV contrast. HISTORY: abdominal pain COMPARISON: CT abdomen and pelvis without contrast performed 12/17/17 TECHNIQUE: Contiguous axial images of the abdomen and pelvis. No oral or IV contrast administered. Coronal and Sagittal reformats generated and reviewed. Radiation dose: Total exam DLP = 312.46 mGy-cm. This CT exam was performed using one or more of the following dose reduction techniques: Automated exposure control, adjustment of the mA and/or kV according to patient size, and/or use of iterative reconstruction technique. FINDINGS: There is limited evaluation of the solid organs without the administration of IV contrast. LOWER THORAX: No visible consolidation, pleural effusion, or pneumothorax. LIVER: Unremarkable. GALLBLADDER AND BILE DUCTS: Unremarkable. PANCREAS: Unremarkable. SPLEEN: 8 mm probable splenule. Otherwise unremarkable. ADRENALS: Unremarkable. KIDNEYS AND URETERS: No hydronephrosis or obstructing renal calculus. BLADDER: Under distention of the urinary bladder appears otherwise unremarkable. REPRODUCTIVE: Uterus is absent, presumably due to hysterectomy. APPENDIX: The appendix is not identified. No secondary signs of acute appendicitis appreciated. BOWEL: The stomach is nondistended. Lack of oral contrast limits evaluation for bowel pathology. The bowel loops appear within normal limits of caliber without evidence of intestinal obstruction. PERITONEUM: No significant free fluid. No definite free air. LYMPH NODES: Nonspecific sub cm bilateral inguinal lymph nodes. No bulky lymphadenopathy identified. VASCULATURE: No aortic aneurysm. BONES: No acute osseous abnormality is detected. OTHER FINDINGS: None. IMPRESSION: No acute pathology identified. Findings as above.
[2018-01-12 18:01] VITALS: BP 110/78; PULSE 87; TEMP 98; O2SAT 100
--- NOTE | 2018-01-13 09:48 | CARD ---
APPROVED REPORT Date of service: 01/12/2018 EKG Measurement Heart [id number] MD [id number] <Conclusion> Normal sinus rhythm Possible Left atrial enlargement Borderline ECG
== END 2018-01-12 18:00 | disposition home or self-care (01) ==
LOC: ED 14:10
DX: G89.29 Other chronic pain (principal); R10.9 Unspecified abdominal pain; I10 Essential (primary) hypertension
CPT/HCPCS: 74176; 80053; 81003; 83690; 83735; 84484; 85025; 93005; 96361; 96374; 96375; 99283; C9113; J2405; J7030